=== PATIENT | male | born 1985 | race Caucasian/White ===

== ENCOUNTER 2016-06-08 15:21 | Emergency (ER) | payer OTHER ==
[~2016-06-08 15:21] MED LIST: APR25 PO; APR50 PO; ATI0.5 PO; ATI1 PO; ATIVAN1 MG PO; CIP500 PO; COL100 PO; DOK PO; FLE10 PO; HYDRALAZINE50 M1 PO; HYDROCODONE-APAP PO; LAC PO; NIFEDICAL XL PO; NORCO1 TA2 PO; PRO60 PO; REN800 PO; RENA-VITE; RENVELA800 M1 PO; SENSIPAR30 M1 PO; V10 PO; [UNRECOGNIZED DRUG - CODE] PO
[2016-06-08 15:27] VITALS: BP 117/89
== END 2016-06-08 16:52 | disposition home or self-care (01) ==
LOC: ED 15:21
DX: L03.115 Cellulitis of right lower limb (principal); I10 Essential (primary) hypertension
CPT/HCPCS: 90715

== ENCOUNTER → 2016-06-22 | Outpatient (CLI) | payer OTHER | END | disposition home or self-care (01) | LOC: RD 16:17 | DX: M43.26 Fusion of spine, lumbar region (principal) ==

== ENCOUNTER 2017-02-08 19:29 | Inpatient (IN) | payer OTHER ==
[~2017-02-08] VITALS: Ht 165.1 cm; Wt 54.5 kg
[2017-02-08 19:50] VITALS: Ht 165.1 cm; Wt 54.5 kg
[2017-02-08 21:21] LABS: PLATELET COUNT 194 x10^3mcL (130-400); RED CELL DISTRIBUTION WIDTH 14.2 % (11.5-14.5)
[2017-02-08 22:56] LABS: ALBUMIN 4.3 g/dL (3.4-5.0); BILIRUBIN TOTAL 0.4 mg/dL (0.20-1.00); CALCIUM 7.8 mg/dL (8.5-10.1); CARBON DIOXIDE 29.4 mmol/L (21-32); MAGNESIUM 2.9 mg/dL (1.8-2.4); T4(THYROXINE) 6.2 ug/dL (4.7-13.3)
[2017-02-08 23:00] LABS: TOTAL PROTEIN, SERUM 8.4 g/dL (6.4-8.2)
[2017-02-08 23:24] LABS: CREATININE SERUM 13.4 mg/dL (0.7-1.3)
[2017-02-08] MEDS ORDERED: PHOSLO667 MG PO (23:30)
[2017-02-08] MEDS ORDERED: MIDODRINE HCL10 MG PO (23:31)
[2017-02-08] MEDS ORDERED: SENSIPAR30 M1 PO (23:31)
[2017-02-08] MEDS ORDERED: RENVELA800 M1 PO (23:33)
[2017-02-08] MEDS ORDERED: NEP PO (23:34)
[2017-02-08] MEDS ORDERED: NOR10T PO (23:35)
[2017-02-09 01:12] VITALS: BP 108/72
[2017-02-09 02:33] LABS: FREE T4 0.91 ng/dL (0.76-1.46); FREE THYROXINE INDEX 2.1 ug/dL (1.4-4.5); T4(THYROXINE) 5.9 ug/dL (4.7-13.3)
[2017-02-09 02:43] LABS: T3 TOTAL 0.62 ng/mL
[2017-02-09 02:50] LABS: PHOSPHOROUS 7.5 mg/dL (2.5-4.9)
[2017-02-09 02:58] LABS: CHOLESTEROL 215 mg/dL (<200); HDL CHOLESTEROL 27 mg/dL (40-60); TRIGLYCERIDES 532 mg/dL (<150)
[2017-02-09 05:44] VITALS: BP 99/68
[2017-02-09 05:47] LABS: RED CELL DISTRIBUTION WIDTH 13.3 % (11.5-14.5)
[2017-02-09 05:51] LABS: PLATELET COUNT 150 x10^3mcL (130-400)
[2017-02-09 05:52] LABS: BASOPHIL % 2.4 % (0-2)
[2017-02-09 06:04] LABS: CALCIUM 8.1 mg/dL (8.5-10.1); CARBON DIOXIDE 26.5 mmol/L (21-32); POTASSIUM SERUM 4.9 mmol/L (3.5-5.1)
[2017-02-09 09:41] VITALS: BP 96/58
[2017-02-09 12:27] VITALS: BP 107/73
[2017-02-09 16:40] VITALS: BP 112/74
[2017-02-09 18:42] VITALS: BP 112/74
== END 2017-02-09 19:23 | disposition home or self-care (01) | DRG 640 ==
LOC: ED 19:29 → DU 23:33
PROVIDERS: Emergency Medicine; ADMIT Family Medicine
DX: E87.5 Hyperkalemia (principal); N17.0 Acute kidney failure with tubular necrosis; K85.90 Acute pancreatitis without necrosis or infection, unspecified; N18.6 End stage renal disease; I12.0 Hypertensive chronic kidney disease with stage 5 chronic kidney disease or end stage renal disease; T86.11 Kidney transplant rejection; E78.5 Hyperlipidemia, unspecified; D63.1 Anemia in chronic kidney disease; E83.41 Hypermagnesemia; F41.9 Anxiety disorder, unspecified; E83.39 Other disorders of phosphorus metabolism; Q05.9 Spina bifida, unspecified; Z90.5 Acquired absence of kidney; Z99.2 Dependence on renal dialysis
CPT/HCPCS: 82962; 83880; 84439; J7030; Q0092

== ENCOUNTER 2017-06-24 13:09 | Emergency (ER) | payer OTHER ==
[~2017-06-24] VITALS: Ht 165.1 cm; Wt 63.5 kg
[~2017-06-24 13:09] MED LIST changes: +MIDODRINE HCL10 MG PO; +NEP PO; +NOR10T PO; +PHOSLO667 MG PO
[2017-06-24 13:29] VITALS: Ht 165.1 cm; Wt 63.5 kg
[2017-06-24 14:06] LABS: UA SPECIFIC GRAVITY 1.015 (1.005-1.035); microscopic required? YES; urine erythrocyte 1+ (NEGATIVE)
[2017-06-24 14:16] LABS: PLATELET COUNT 291 x10^3mcL (130-400); RED CELL DISTRIBUTION WIDTH 13.3 % (11.5-14.5)
[2017-06-24 14:20] LABS: BASOPHIL % 0 % (0-2)
[2017-06-24 14:24] LABS: POTASSIUM SERUM 4.7 mmol/L (3.5-5.1)
[2017-06-24 14:34] LABS: CALCIUM 8.6 mg/dL (8.5-10.1); CREATININE SERUM 1.9 mg/dL (0.7-1.3)
[2017-06-24 16:24] VITALS: BP 119/71
== END 2017-06-24 16:24 | disposition home or self-care (01) ==
LOC: ED 13:09
PROVIDERS: Emergency Medicine
DX: N39.0 Urinary tract infection, site not specified (principal); I10 Essential (primary) hypertension
CPT/HCPCS: J0696